=== PATIENT | male | born 1990 | race Caucasian/White ===

== ENCOUNTER 2020-02-27 14:18 | Emergency (ER) | payer OTHER ==
[~2020-02-27] VITALS: Ht 172.7 cm; Wt 81.7 kg
[~2020-02-27 14:18] MED LIST: Norco 5-325 Ta1 EACH PO; Zofran8 MG PO
[2020-02-27] MEDS ORDERED: ESCI10 PO (14:27)
== END 2020-02-27 15:30 | disposition home or self-care (01) ==
LOC: ER 14:18
DX: S63.92XA Sprain of unspecified part of left wrist and hand, initial encounter (principal); S00.83XA Contusion of other part of head, initial encounter; Y04.0XXA Assault by unarmed brawl or fight, initial encounter
CPT/HCPCS: 73130; 99284-25

== ENCOUNTER 2020-06-17 06:12 | Day surgery (SDC) | payer OTHER ==
[~2020-06-17] VITALS: Ht 172.7 cm; Wt 82.3 kg
[~2020-06-17 06:12] MED LIST changes: +AZELASTINE137 MCG/01; +ESCI10 PO
--- NOTE | 2020-06-17 10:01 | NUR ---
06/17/20 1001 Verna Schaeffer PT C/O 01/24 HEADACHE. MEDICATED WITH FENTANYL 25MCG IVP PER ORDERS. VSS, TOLERATING PO FLUIDS. DENIES FURTHER NEEDS AT THIS TIME. WILL CONTINUE TO MONITOR.
== END 2020-06-17 11:10 | disposition home or self-care (01) ==
LOC: ORSCSDS 06:12
PROVIDERS: Otolaryngology
PROC: 09BM8ZZ Excision of Nasal Septum, Via Natural or Artificial Opening Endoscopic (ICD-10-PCS; principal; 2020-06-17 07:30)
DX: J34.2 Deviated nasal septum (principal); J34.3 Hypertrophy of nasal turbinates
CPT/HCPCS: J1100; J1885; J2250; J2405; J2704; J3010; J7120